=== PATIENT | female | born 1985 | race Caucasian/White ===

== ENCOUNTER 2018-12-12 12:08 | Emergency (ER) | payer OTHER ==
[2018-12-12 13:50] LABS: ADD MAN DIFF? NO
[2018-12-12 13:52] LABS: WHITE BLOOD COUNT 6.2 10^3/ul (4.8-10.8)
[2018-12-12 13:52] LABS: BASOPHILS % 0.5 % (0.0-2.0); EOSINOPHILS # 0.1 10^3/ul (0.0-0.5); EOSINOPHILS % 1.6 % (0.0-7.0); HEMATOCRIT 41.8 % (37.0-47.0); HEMOGLOBIN 13.9 g/dl (12.0-16.0); LYMPHOCYTES # 1.9 10^3/ul (0.8-2.9); MEAN CORPUSCULAR HEMOGLOBIN 29.9 pg (29.0-33.0); MEAN CORPUSCULAR HGB CONC 33.3 g/dl (32.0-37.0); MEAN CORPUSCULAR VOLUME 89.9 fl (82.0-101.0); MEAN PLATELET VOLUME 11.6 fl (7.4-10.4); MONOCYTE # 0.4 10^3/ul (0.3-0.9); MONOCYTES % 6.2 % (0.0-11.0); NEUTROPHIL # 3.8 10^3/ul (1.6-7.5); NEUTROPHILS % 61.2 % (39.0-77.0); PLATELET COUNT 207 10^3/UL (140-415); RED BLOOD COUNT 4.65 10^6/ul (4.20-5.40); RED CELL DISTRIBUTION WIDTH 13.3 % (11.5-14.5)
[2018-12-12] MEDS: SOD CHLORIDE 0.9% 500 ML IV (13:52)
[2018-12-12] MEDS: KETOROLAC 30 MG INJ IV (13:52)
== END 2018-12-12 15:28 | disposition home or self-care (01) ==
LOC: FTE 12:08
DX: M54.2 Cervicalgia (principal)
CPT/HCPCS: 81025; 85025; 96361; 96374; 99284-25